=== PATIENT | male | born 1975 | race Caucasian/White ===

== ENCOUNTER 2016-11-28 13:35 | Emergency (ER) | payer SELFPAY ==
--- NOTE | 2016-11-28 22:05 | Emergency Department Report ---
ED Headache HPI - General Chief Complaint: High BP Stated Complaint: HIGH BP Time Seen by Provider: 11/28/16 21:56 Source: patient Exam Limitations: language barrier (stacker driver) - History of Present Illness Initial Comments: 41-year-old male with no known past medical history presents to the hospital complaining of frontal headache 2 days. Frontal Headache is intermittent, moderate in intensity without aggravating or alleviating factors. Patient complains of intermittent blurred vision for the past 2-3 days as well. Patient went to urgent care clinic because of the headache and the fact that his extremities felt heavy. Noted to have elevated blood pressure was sent to the ER for evaluation. No complaints of focal weakness, focal numbness, nausea , vomiting, chest pain, shortness of breath. Allergies/Adverse Reactions: Allergies No Known Allergies Allergy (Unverified 11/28/16 15:18) Home Medications: Ambulatory Orders Ibuprofen [Motrin] 600 mg PO Q8H PRN #30 tablet 11/29/16 amLODIPine [Norvasc] 10 mg PO DAILY #30 tab 11/29/16 ED Review of Systems ROS: Stated complaint: HIGH BP Other details as noted in HPI Comment: All other systems reviewed and negative Other: Constitutional: No fevers chills Eyes: No eye pain visual changes ENT: No ear pain or throat pain Neck: Denies pain Respiratory: Denies cough wheezing shortness of breath Cardiovascular: Denies chest pain, palpitations, syncope GI: Denies abdominal pain, nausea, vomiting, diarrhea : Denies dysuria Musculoskeletal: Denies back pain, Skin: Denies rash, lesions, erythema Neurologic: As per HPI Psychiatric: Denies suicidal ideation, hallucinations ED Past Medical Hx - Medications Home Medications: Home Medications Medication Instructions Recorded Confirmed Last Taken Type Ibuprofen [Motrin] 600 mg PO Q8H PRN #30 tablet 11/29/16 Unknown Rx amLODIPine [Norvasc] 10 mg PO DAILY #30 tab 11/29/16 Unknown Rx ED Physical Exam - General Limitations: Language Barrier - Other Other exam information: General: No limitations, patient is alert in no acute distress Head exam: Atraumatic, normocephalic Eyes exam: Normal appearance, pupils equal reactive to light, extraocular movements intact ENT: Moist mucous membrane, normal oropharynx Neck exam: Normal inspection, full range of motion Respiratory exam: Clear to auscultation bilateral, no wheezes, rales, crackles Cardiovascular: Normal rate and rhythm, normal heart sounds Abdomen: Soft, nondistended, and nontender, with normal bowel sounds, no rebound, or guarding Extremity: Full range of motion normal inspection no deformity Back: Normal Inspection, full range of motion, no tenderness Neurologic: Alert, oriented x3, cranial nerves intact, no motor or sensory deficit, [id number] function intact Psychiatric: normal affect, normal mood Skin: Warm, dry, intact ED Course Vital Signs 11/28/16 11/28/16 11/28/16 15:12 22:16 22:47 Temperature 98.0 F Pulse Rate 71 Respiratory 17 Rate Blood Pressure 206/114 195/121 Blood Pressure 200/110 [Right] O2 Sat by Pulse 99 Oximetry 11/28/16 11/28/16 11/28/16 22:48 22:49 22:51 Temperature Pulse Rate 83 66 Respiratory 11 L 20 Rate Blood Pressure 195/121 195/121 195/121 Blood Pressure [Right] O2 Sat by Pulse 99 99 99 Oximetry 11/28/16 11/28/16 11/28/16 22:53 22:55 22:57 Temperature Pulse Rate 78 69 66 Respiratory 15 20 20 Rate Blood Pressure 195/121 195/121 195/121 Blood Pressure [Right] O2 Sat by Pulse 99 99 98 Oximetry 11/28/16 11/28/16 11/28/16 22:59 23:00 23:01 Temperature Pulse Rate 69 68 65 Respiratory 21 20 21 Rate Blood Pressure 195/121 190/118 190/118 Blood Pressure [Right] O2 Sat by Pulse 98 97 98 Oximetry 11/28/16 11/28/16 11/28/16 23:41 23:45 23:50 Temperature Pulse Rate Respiratory Rate Blood Pressure 199/121 201/129 190/125 Blood Pressure [Right] O2 Sat by Pulse Oximetry 11/29/16 11/29/16 11/29/16 00:00 00:16 00:27 Temperature Pulse Rate Respiratory Rate Blood Pressure 183/126 168/91 160/112 Blood Pressure [Right] O2 Sat by Pulse Oximetry 11/29/16 11/29/16 11/29/16 00:30 00:45 00:53 Temperature Pulse Rate Respiratory Rate Blood Pressure 171/112 166/107 174/113 Blood Pressure [Right] O2 Sat by Pulse Oximetry 11/29/16 11/29/1611/29/17 00:59 01:00 01:15 Temperature Pulse Rate Respiratory Rate Blood Pressure 165/108 172/109 Blood Pressure 174/113 [Right] O2 Sat by Pulse Oximetry 11/29/16 11/29/16 01:19 01:30 Temperature Pulse Rate Respiratory Rate Blood Pressure 151/86 Blood Pressure 165/108 [Right] O2 Sat by Pulse Oximetry - Reevaluation(s) Reevaluation #1: 11/29/16 01:58 BP and symptoms improved with ED treatment. ED Medical Decision Making - Lab Data Result diagrams: 11/28/16 22:11 11/28/16 22:11 Lab Results 11/28/16 11/28/16 Range/Units 22:11 22:11 WBC 8.7 (4.5-11.0) K/mm3 RBC 5.10 H (3.65-5.03) M/mm3 Hgb 15.3 H (11.8-15.2) gm/dl Hct 44.6 (35.5-45.6) % MCV 88 (84-94) fl MCH 30 (28-32) pg MCHC 34 (32-34) % RDW 13.3 (13.2-15.2) % Plt Count 191 (140-440) K/mm3 Sodium 141 (137-145) mmol/L Potassium 3.8 (3.6-5.0) mmol/L Chloride 103.2 (98-107) mmol/L Carbon Dioxide 24 (22-30) mmol/L Anion Gap 18 mmol/L BUN 12 (9-20) mg/dL Creatinine 0.7 L (0.8-1.5) mg/dL Estimated GFR > 60 ml/min BUN/Creatinine Ratio 17.14 % Glucose 86 (75-100) mg/dL Calcium 8.8 (8.4-10.2) mg/dL - Radiology Data Radiology results: report reviewed CT head: 3 cm round CSF filled cystic structure likely an arachnoid cyst. See report for other incidental findings. No acute findings. - Medical Decision Making [employer] used throughout ED stay to assess patient, follow up with patient, and provide translation for diagnosis of disposition planning. Patient was discharged home with outpatient follow-up. Arachnoid cyst likely incidental finding the patient should follow-up. Will be provided BP medication for nausea hypertension - Differential Diagnosis new-onset hypertension, hypertensive emergency, hypertensive headache Critical Care Time: No Critical care attestation.: If time is entered above; I have spent that time in minutes in the direct care of this critically ill patient, excluding procedure time. ED Disposition Clinical Impression: Arachnoid cyst, Headache Hypertension Qualifiers: Hypertension type: essential hypertension Qualified Code(s): I10 - Essential ( primary) hypertension Disposition: DISCHARGED TO HOME OR SELFCARE Is pt being admited?: No Does the pt Need Aspirin: No Condition: Stable Instructions: Hypertension (ED), Acute Headache (ED) Additional Instructions: Follow up with the primary care doctor or clinic provided. Take the medication as prescribed. It is very important that you follow for adjustment in your medication as needed. Also you need to follow up regarding the brain cyst seen on your head ct. Return if symptoms worsen. Take the copy of the cat scan provided Seguimiento con el mdico de atencin primaria o clnica proporcionada. [place] la medicacin segn lo prescrito. Es muy importante que usted siga para el ajuste en [facility] medicamento segn sea necesario. Tambin es necesario hacer un seguimiento en relacin con el quiste cerebral visto en [place] [facility]. Regrese si los sntomas empeoran. [place] la copia de la exploracin de tevin proporcionada Prescriptions: amLODIPine [Norvasc] 10 mg PO DAILY #30 tab Ibuprofen [Motrin] 600 mg PO Q8H PRN #30 tablet PRN Reason: Pain Referrals: [facility] [Provider Group] - 3-5 Days MARTA MEDINA MD, PHD [Staff Physician] - 3-5 Days Time of Disposition: 02:02
[2016-11-28] MEDS ORDERED: TORADOL IM ONE (22:16)
[2016-11-28] MEDS ORDERED: CATAPRES PO ONE (22:16)
[2016-11-28 22:29] LABS: Hematocrit 44.6 % (35.5-45.6); Hemoglobin 15.3 gm/dl (11.8-15.2); Mean Corpuscular HGB Conc 34 % (32-34); Mean Corpuscular Hemoglobin 30 pg (28-32); Mean Corpuscular Volume 88 fl (84-94); Platelet Count 191 K/mm3 (140-440); Red Cell Distribution Width 13.3 % (13.2-15.2); White Blood Count 8.7 K/mm3 (4.5-11.0)
[2016-11-28 22:59] LABS: BUN/Creatinine Ratio 17.14; Blood Urea Nitrogen 12 mg/dL (9-20); Calcium 8.8 mg/dL (8.4-10.2); Carbon Dioxide 24 mmol/L (22-30); Chloride 103.2 mmol/L (98-107); Glucose 86 mg/dL (75-100); Potassium 3.8 mmol/L (3.6-5.0); Sodium 141 mmol/L (137-145)
[2016-11-28 23:12] LABS: Anion Gap 18 mmol/L
--- NOTE | 2016-11-29 00:09 | Cat Scan Report ---
FINAL REPORT PROCEDURE: CT HEAD/BRAIN WO CON TECHNIQUE: Computerized tomography of the head was performed without contrast material. HISTORY: Headache. New onset of hypertension COMPARISON: No prior studies are available for comparison. FINDINGS: There is no CT evidence of intracranial hemorrhage or edema or major vascular territory infarct. There no midline shift. Ventricles and sulci appear appropriate for age. Bony structures appear unremarkable. In the midline of the upper posterior fossa just to the left of center and abutting the inner table of the occipital bone is a 3.0 centimeter rounded cystic structure filled with CSF. This is nonspecific but has an appearance suggesting it may be an arachnoid cyst. Also noted in the deep white matter lateral to the head of the left caudate nucleus and left frontal horn there is a small 8 millimeter linear hypodense focus. This is too small to characterize and therefore remains nonspecific but could potentially be a small deep white matter old infarct. A similar finding is seen anterior to the left frontal horn in the region of the anterior corpus callosum. IMPRESSION: 1. There is no CT evidence of intracranial hemorrhage or edema or shift or major vascular territory cortical infarct or distinct acute finding on this noncontrast scan. 2. There is a 3.0 centimeter round CSF filled cystic structure in the upper posterior fossa just to the left of midline abutting the inner table of the occipital bone. This has an appearance suggesting a probable arachnoid cyst. Whether this is related to the patient's symptoms of headache are uncertain. This may be an incidental finding. Periodic follow-up recommended to make sure this remains stable and develops no unfavorable change. 3. A tiny 8 millimeter linear hypodense focus is seen in the deep white matter lateral to the left frontal horn. A similar tiny hypodense focus is seen anterior to the left frontal horn. The significance of these 2 tiny findings are uncertain. They are too small to definitely characterize. They could be tiny old deep white matter infarcts although again they are nonspecific.
[2016-11-29] MEDS ORDERED: CATAPRES PO ONE (01:32)
[2016-11-29 01:50] VITALS: BP 151/86
== END 2016-11-29 02:45 | disposition home or self-care (01) ==
LOC: ED 13:35
DX: G93.0 Cerebral cysts (principal); I10 Essential (primary) hypertension
CPT/HCPCS: 36415; 70450; 80048; 85027; 96372; 99284; J1885